=== PATIENT | male | born 1955 | race African-American/Black ===

== ENCOUNTER 2021-02-05 12:56 | Emergency (ER) | payer OTHER ==
[2021-02-05 13:18] VITALS: BP 118/72; PULSE 110; TEMP 98.7; BMI 23.7
[2021-02-05] MEDS ORDERED: KETOROLAC TROMETHAMINE 30 MG/1 ML VIAL IM ONE (14:00)
[2021-02-05] MEDS ORDERED: KETOROLAC TROMETHAMINE 30 MG/1 ML VIAL ONE (14:06)
== END 2021-02-05 15:21 | disposition home or self-care (01) ==
LOC: JERFT 12:56
PROC: 3E023GC Introduction of Other Therapeutic Substance into Muscle, Percutaneous Approach (ICD-10-PCS; principal; 2021-02-05)
DX: M54.2 Cervicalgia (principal); V49.40XA Driver injured in collision with unspecified motor vehicles in traffic accident, initial encounter
CPT/HCPCS: 72050-TC-FY; 99284-25

== ENCOUNTER 2022-10-16 13:05 | Inpatient (IN) | payer OTHER ==
[2022-10-16] MEDS ORDERED: SODIUM CHLORIDE 2,177 ML IV ONE (14:11)
[2022-10-16 14:35] LABS: BASO % 0.5 % (0-2.0); HEMATOCRIT 37.8 % (35.4-49); HEMOGLOBIN 12.2 GM/dL (11.7-16.9); MCH 28.1 pg (25.7-33.7); MCHC 32.3 g/dl (32.0-35.9); MEAN CELL VOLUME 87.1 fl (80-96); MEAN PLT VOLUME 8.5 fl (7.5-11.1); MONO % 3.2 % (3.8-10.2); NEUT % 81.3 % (42.8-82.8); PLATELET COUNT 357 10^3/uL (134-434); RBC 4.34 M/mm3 (4.00-5.60); RDW 13.2 % (11.9-15.9); WHITE BLOOD COUNT 9.8 K/mm3 (4.0-10.0)
[2022-10-16 14:53] LABS: ACTIVATED PTT 34.7 SECONDS (25.2-36.5); INR 1.06 (0.83-1.09); PROTHROMBIN TIME (PATIENT) 12.3 SEC (9.7-13.0)
[2022-10-16 14:56] LABS: POTASSIUM 5.4 mmol/L (3.5-5.1)
[2022-10-16 14:58] LABS: CALCIUM 10.3 mg/dL (8.5-10.1)
[2022-10-16 14:59] LABS: BLOOD UREA NITROGEN 22.8 mg/dL (7-18); MAGNESIUM 2.4 mg/dL (1.8-2.4)
[2022-10-16 15:02] LABS: CREATININE 1.2 mg/dL (0.55-1.3)
[2022-10-16 15:03] LABS: BILIRUBIN,TOTAL 1.4 mg/dL (0.2-1)
[2022-10-16 15:04] LABS: TOT PROT 7.9 g/dl (6.4-8.2)
[2022-10-16 15:07] LABS: N-TERMINAL BNP 22.9 pg/ml (5-125)
[2022-10-16 15:11] LABS: LACTIC ACID 4.9 mmol/L (0.4-2.0)
[2022-10-16 15:42] LABS: VENOUS BASE EXCESS -14.7 mmol/L (-2-2); VENOUS O2 SATURATION 59.9 % (70-80)
[2022-10-16 15:46] LABS: VENOUS PH 7.191 (7.310-7.410)
[2022-10-16] MEDS ORDERED: INSULIN REGULAR 100 UNITS in SODIUM CHLORIDE 99 ML IVPB SCH ×2 (16:00→22:30)
[2022-10-16] MEDS ORDERED: SODIUM CHLORIDE 1,000 ML IV SCH (16:30)
[2022-10-16 16:31] LABS: POTASSIUM 5.4 mmol/L (3.5-5.1)
[2022-10-16 16:32] LABS: CALCIUM 9.5 mg/dL (8.5-10.1)
[2022-10-16 16:33] LABS: BLOOD UREA NITROGEN 22.1 mg/dL (7-18)
[2022-10-16 16:36] LABS: CREATININE 1.1 mg/dL (0.55-1.3)
[2022-10-16 17:06] LABS: URINE APPEARANCE CLEAR; URINE BILIRUBIN NEGATIVE (NEGATIVE); URINE COLOR YELLOW; URINE GLUCOSE (UA) 3+ (NEGATIVE); URINE KETONE 4+ (NEGATIVE); URINE LEUK ESTERASE NEGATIVE (NEGATIVE); URINE NITRITE NEGATIVE (NEGATIVE); URINE PROTEIN NEGATIVE (NEGATIVE); URINE UROBILINOGEN 0.2 mg/dL (0.2-1.0)
[2022-10-16 17:22] LABS: POTASSIUM 4.5 mmol/L (3.5-5.1)
[2022-10-16 17:24] LABS: BLOOD UREA NITROGEN 20.9 mg/dL (7-18)
[2022-10-16 17:27] LABS: CREATININE 1.1 mg/dL (0.55-1.3)
[2022-10-16 17:58] LABS: LACTIC ACID 3.6 mmol/L (0.4-2.0)
[2022-10-16] MEDS: SODIUM CHLORIDE 0.9%/KCL 20 MEQ/1,000 ML INFUS.BAG IV SCH (18:07)
[2022-10-16 21:03] VITALS: BMI 18.3
[2022-10-16] MEDS ORDERED: DEXTROSE 50%-WATER - 25 GM/50 ML VIAL IVPUSH PRN (22:16)
[2022-10-16] MEDS ORDERED: SODIUM CHLORIDE 1,000 ML IV STA (23:28)
[2022-10-17 01:46] LABS: POTASSIUM 5.1 mmol/L (3.5-5.1)
[2022-10-17 01:48] LABS: BLOOD UREA NITROGEN 18.4 mg/dL (7-18); CALCIUM 8.9 mg/dL (8.5-10.1)
[2022-10-17 01:49] LABS: ALBUMIN 3.5 g/dl (3.4-5.0); MAGNESIUM 2.2 mg/dL (1.8-2.4)
[2022-10-17 01:51] LABS: PHOSPHOROUS 2.8 mg/dL (2.5-4.9)
[2022-10-17 01:53] LABS: TOT PROT 6.7 g/dl (6.4-8.2)
[2022-10-17] MEDS: SODIUM CHLORIDE 0.9%/KCL 20 MEQ/1,000 ML INFUS.BAG IV SCH ×2 (04:40→16:27)
[2022-10-17 07:35] LABS: HEMATOCRIT 33.2 % (35.4-49); HEMOGLOBIN 11.1 GM/dL (11.7-16.9); MCH 29.2 pg (25.7-33.7); MCHC 33.6 g/dl (32.0-35.9); MEAN CELL VOLUME 86.8 fl (80-96); MEAN PLT VOLUME 8.7 fl (7.5-11.1); PLATELET COUNT 314 10^3/uL (134-434); RBC 3.82 M/mm3 (4.00-5.60); RDW 13.2 % (11.9-15.9); WHITE BLOOD COUNT 9.3 K/mm3 (4.0-10.0)
[2022-10-17 07:58] LABS: MAGNESIUM 2.3 mg/dL (1.8-2.4)
[2022-10-17 08:02] LABS: PHOSPHOROUS 3.2 mg/dL (2.5-4.9)
[2022-10-17] MEDS: INSULIN SLIDING SCALE (NOVOLOG) 1 VIAL SQ SCH ×3 (11:44→21:19)
[2022-10-17 12:43] LABS: POTASSIUM 4.1 mmol/L (3.5-5.1)
[2022-10-17 12:44] LABS: CALCIUM 8.9 mg/dL (8.5-10.1)
[2022-10-17 12:45] LABS: BLOOD UREA NITROGEN 14.5 mg/dL (7-18); MAGNESIUM 2.3 mg/dL (1.8-2.4)
[2022-10-17 12:48] LABS: PHOSPHOROUS 2.6 mg/dL (2.5-4.9)
[2022-10-17] MEDS ORDERED: SODIUM CHLORIDE 1,000 ML IV STA (16:23)
[2022-10-18] MEDS: SODIUM CHLORIDE 0.9%/KCL 20 MEQ/1,000 ML INFUS.BAG IV SCH (02:33)
[2022-10-18] MEDS: INSULIN SLIDING SCALE (NOVOLOG) 1 VIAL SQ SCH ×4 (06:02→21:49)
[2022-10-18] MEDS ORDERED: ONDANSETRON 4 MG/2 ML VIAL IVPUSH PRN ×2 (07:31→17:27)
[2022-10-18] MEDS ORDERED: ONDANSETRON 4 MG/2 ML VIAL IVPUSH ONE (07:31)
[2022-10-18 08:03] LABS: POTASSIUM 4.3 mmol/L (3.5-5.1)
[2022-10-18 08:07] LABS: BLOOD UREA NITROGEN 10.8 mg/dL (7-18); CALCIUM 9.2 mg/dL (8.5-10.1)
[2022-10-18 08:11] LABS: CREATININE 0.9 mg/dL (0.55-1.3); PHOSPHOROUS 2.6 mg/dL (2.5-4.9)
[2022-10-18 08:17] LABS: BASO % 0.6 % (0-2.0); HEMATOCRIT 33.2 % (35.4-49); LYMPH % 26.6 % (8-40); MCH 28.8 pg (25.7-33.7); MEAN CELL VOLUME 87.3 fl (80-96); MEAN PLT VOLUME 8.3 fl (7.5-11.1); MONO % 4.8 % (3.8-10.2); PLATELET COUNT 288 10^3/uL (134-434); RBC 3.81 M/mm3 (4.00-5.60); RDW 13.4 % (11.9-15.9); WHITE BLOOD COUNT 7.4 K/mm3 (4.0-10.0)
[2022-10-18] MEDS: ENOXAPARIN NA (PORCINE) 40 MG/0.4 ML DISP.SYRIN SQ SCH (17:46)
[2022-10-18] MEDS: INSULIN (LEVEMIR) 100 UNITS/ML UNITS SQ SCH (21:48)
[2022-10-19] MEDS: INSULIN (LEVEMIR) 100 UNITS/ML UNITS SQ SCH ×2 (06:21→22:28)
[2022-10-19] MEDS: INSULIN SLIDING SCALE (NOVOLOG) 1 VIAL SQ SCH ×4 (06:22→22:55)
[2022-10-19 08:22] LABS: POTASSIUM 4.1 mmol/L (3.5-5.1)
[2022-10-19 08:24] LABS: BASO % 0.5 % (0-2.0); HEMATOCRIT 33.8 % (35.4-49); LYMPH % 20.7 % (8-40); MCH 28.3 pg (25.7-33.7); MCHC 32.6 g/dl (32.0-35.9); MEAN PLT VOLUME 7.7 fl (7.5-11.1); MONO % 6.8 % (3.8-10.2); PLATELET COUNT 295 10^3/uL (134-434); RBC 3.89 M/mm3 (4.00-5.60); RDW 13.7 % (11.9-15.9); WHITE BLOOD COUNT 5.7 K/mm3 (4.0-10.0)
[2022-10-19 08:30] LABS: ALBUMIN 3.5 g/dl (3.4-5.0); BLOOD UREA NITROGEN 12.3 mg/dL (7-18); CALCIUM 9.2 mg/dL (8.5-10.1)
[2022-10-19 08:33] LABS: CREATININE 1.2 mg/dL (0.55-1.3)
[2022-10-19 08:35] LABS: BILIRUBIN,TOTAL 0.9 mg/dL (0.2-1)
[2022-10-19 08:37] LABS: TOT PROT 6.6 g/dl (6.4-8.2)
[2022-10-19] MEDS: ENOXAPARIN NA (PORCINE) 40 MG/0.4 ML DISP.SYRIN SQ SCH (10:20)
[2022-10-19] MEDS ORDERED: INSULIN (NOVOLOG) ASPART 100 UNITS/ML 10ML VIAL ONE (11:37)
[2022-10-19] MEDS ORDERED: SODIUM CHLORIDE 1,000 ML IV STA (17:54)
[2022-10-19] MEDS ORDERED: SODIUM CHLORIDE 1,000 ML IV SCH (18:00)
[2022-10-19] MEDS ORDERED: SODIUM CHLORIDE 0.45% 1,000 ML IV SCH (18:30)
[2022-10-20] MEDS: SODIUM CHLORIDE 0.45% 1,000 ML IV SCH ×2 (03:15→21:23)
[2022-10-20] MEDS ORDERED: ONDANSETRON 4 MG/2 ML VIAL IVPUSH PRN (03:36)
[2022-10-20] MEDS ORDERED: SODIUM CHLORIDE 1,000 ML IV SCH (03:36)
[2022-10-20] MEDS: INSULIN (LEVEMIR) 100 UNITS/ML UNITS SQ SCH (06:12)
[2022-10-20] MEDS: INSULIN SLIDING SCALE (NOVOLOG) 1 VIAL SQ SCH ×4 (06:12→21:23)
[2022-10-20 07:34] LABS: POTASSIUM 3.4 mmol/L (3.5-5.1)
[2022-10-20 07:42] LABS: CALCIUM 9.4 mg/dL (8.5-10.1)
[2022-10-20 07:43] LABS: ALBUMIN 3.3 g/dl (3.4-5.0)
[2022-10-20 07:44] LABS: BLOOD UREA NITROGEN 13.8 mg/dL (7-18)
[2022-10-20 07:48] LABS: BILIRUBIN,TOTAL 0.8 mg/dL (0.2-1); TOT PROT 6.3 g/dl (6.4-8.2)
[2022-10-20] MEDS: ENOXAPARIN NA (PORCINE) 40 MG/0.4 ML DISP.SYRIN SQ SCH (11:33)
[2022-10-20] MEDS ORDERED: POTASSIUM CHLORIDE ORAL LIQUID 20 MEQ/15 ML PO ONE (12:32)
[2022-10-20] MEDS ORDERED: INSULIN (NOVOLOG) ASPART 100 UNITS/ML 10ML VIAL ONE (21:10)
[2022-10-21] MEDS: SODIUM CHLORIDE 0.45% 1,000 ML IV SCH ×2 (04:03→11:13)
[2022-10-21] MEDS ORDERED: INSULIN (NOVOLOG) ASPART 100 UNITS/ML 10ML VIAL ONE ×5 (06:25→21:40)
[2022-10-21] MEDS: INSULIN (LEVEMIR) 100 UNITS/ML UNITS SQ SCH (06:26)
[2022-10-21] MEDS: INSULIN SLIDING SCALE (NOVOLOG) 1 VIAL SQ SCH ×4 (06:27→21:44)
[2022-10-21 06:43] LABS: POTASSIUM 3.5 mmol/L (3.5-5.1)
[2022-10-21 06:49] LABS: ALBUMIN 2.9 g/dl (3.4-5.0); BLOOD UREA NITROGEN 12.4 mg/dL (7-18); CALCIUM 8.7 mg/dL (8.5-10.1)
[2022-10-21 06:52] LABS: CREATININE 0.9 mg/dL (0.55-1.3)
[2022-10-21 06:54] LABS: BILIRUBIN,TOTAL 0.7 mg/dL (0.2-1); TOT PROT 5.5 g/dl (6.4-8.2)
[2022-10-21] MEDS: ENOXAPARIN NA (PORCINE) 40 MG/0.4 ML DISP.SYRIN SQ SCH (09:02)
[2022-10-22] MEDS ORDERED: INSULIN (NOVOLOG) ASPART 100 UNITS/ML 10ML VIAL ONE ×4 (06:18→22:51)
[2022-10-22] MEDS: INSULIN (LEVEMIR) 100 UNITS/ML UNITS SQ SCH (06:19)
[2022-10-22] MEDS: SODIUM CHLORIDE 0.45% 1,000 ML IV SCH ×2 (06:19→18:25)
[2022-10-22] MEDS: INSULIN SLIDING SCALE (NOVOLOG) 1 VIAL SQ SCH ×4 (06:20→22:51)
[2022-10-22 08:05] LABS: EOS % 1.8 % (0-4.5); HEMATOCRIT 26.6 % (35.4-49); HEMOGLOBIN 8.8 GM/dL (11.7-16.9); MCH 28.7 pg (25.7-33.7); MCHC 33.3 g/dl (32.0-35.9); MEAN CELL VOLUME 86.2 fl (80-96); MEAN PLT VOLUME 7.4 fl (7.5-11.1); MONO % 8.7 % (3.8-10.2); NEUT % 50.5 % (42.8-82.8); PLATELET COUNT 215 10^3/uL (134-434); RBC 3.09 M/mm3 (4.00-5.60); RDW 13.6 % (11.9-15.9)
[2022-10-22 08:30] LABS: POTASSIUM 3.2 mmol/L (3.5-5.1)
[2022-10-22 08:32] LABS: CALCIUM 8.7 mg/dL (8.5-10.1)
[2022-10-22 08:33] LABS: ALBUMIN 2.8 g/dl (3.4-5.0); BLOOD UREA NITROGEN 11.5 mg/dL (7-18)
[2022-10-22 08:36] LABS: CREATININE 0.7 mg/dL (0.55-1.3)
[2022-10-22 08:37] LABS: BILIRUBIN,TOTAL 0.6 mg/dL (0.2-1); TOT PROT 5.2 g/dl (6.4-8.2)
[2022-10-22] MEDS ORDERED: METOCLOPRAMIDE HCL INJECTION 10 MG/2 ML VIAL IVPUSH PRN (10:01)
[2022-10-22] MEDS: ENOXAPARIN NA (PORCINE) 40 MG/0.4 ML DISP.SYRIN SQ SCH (10:39)
[2022-10-22] MEDS: KCL 10 MEQ IVPB 10 MEQ/100 ML INFUS.BAG IVPB SCH ×3 (12:34→15:14)
[2022-10-22] MEDS ORDERED: POTASSIUM CHLORIDE ORAL LIQUID 20 MEQ/15 ML PO ONE (15:34)
[2022-10-22] MEDS: POLYETHYLENE GLYCOL (HEALTHYLAX) 3350 17 GM PACKET PO SCH ×2 (16:31→22:43)
[2022-10-22] MEDS ORDERED: SENNOSIDES 8.6MG TABLET (FP) PO SCH (22:00)
[2022-10-22] MEDS ORDERED: ATORVASTATIN CA 80 MG TABLET (FP) PO SCH (22:00)
[2022-10-23] MEDS ORDERED: INSULIN (NOVOLOG) ASPART 100 UNITS/ML 10ML VIAL ONE ×3 (05:59→17:01)
[2022-10-23] MEDS: INSULIN SLIDING SCALE (NOVOLOG) 1 VIAL SQ SCH ×4 (05:59→21:22)
[2022-10-23] MEDS ORDERED: INSULIN (LEVEMIR) 100 UNITS/ML UNITS SQ SCH ×2 (07:00→11:31)
[2022-10-23] MEDS: SODIUM CHLORIDE 0.45% 1,000 ML IV SCH (07:31)
[2022-10-23 08:33] LABS: HEMATOCRIT 25.3 % (35.4-49); MCH 30.3 pg (25.7-33.7); MCHC 35.4 g/dl (32.0-35.9); MEAN CELL VOLUME 85.6 fl (80-96); MEAN PLT VOLUME 8.4 fl (7.5-11.1); PLATELET COUNT 205 10^3/uL (134-434); RBC 2.96 M/mm3 (4.00-5.60); WHITE BLOOD COUNT 3.8 K/mm3 (4.0-10.0)
[2022-10-23 08:43] LABS: POTASSIUM 3.6 mmol/L (3.5-5.1)
[2022-10-23 08:56] LABS: BLOOD UREA NITROGEN 9.4 mg/dL (7-18); CALCIUM 9.2 mg/dL (8.5-10.1)
[2022-10-23 09:00] LABS: CREATININE 0.5 mg/dL (0.55-1.3)
[2022-10-23] MEDS ORDERED: PNEUMOC 20-VAL CONJ-DIP CRM/PF 0.5 ML SYRINGE IM ONE (10:00)
[2022-10-23] MEDS: RAMIPRIL 2.5 MG CAPSULE PO SCH ×2 (10:30→12:03)
[2022-10-23] MEDS: ENOXAPARIN NA (PORCINE) 40 MG/0.4 ML DISP.SYRIN SQ SCH ×2 (10:30→12:02)
[2022-10-23] MEDS: POLYETHYLENE GLYCOL (HEALTHYLAX) 3350 17 GM PACKET PO SCH ×3 (10:37→21:23)
[2022-10-23] MEDS ORDERED: POLYETHYLENE GLYCOL (HEALTHYLAX) 3350 17 GM PACKET PO SCH ×2 (11:45→17:54)
[2022-10-23] MEDS ORDERED: SODIUM CHLORIDE 0.45% 1,000 ML IV SCH (17:54)
[2022-10-23] MEDS ORDERED: ONDANSETRON 4 MG/2 ML VIAL IVPUSH ONE (20:23)
[2022-10-23] MEDS: ATORVASTATIN CA 80 MG TABLET (FP) PO SCH (21:23)
[2022-10-23] MEDS: DOCUSATE SODIUM 100 MG CAPSULE (FP) PO SCH (21:23)
[2022-10-23] MEDS ORDERED: DOCUSATE SODIUM 100 MG CAPSULE (FP) PO SCH (22:00)
[2022-10-24] MEDS: INSULIN SLIDING SCALE (NOVOLOG) 1 VIAL SQ SCH ×4 (06:36→21:10)
[2022-10-24] MEDS ORDERED: INSULIN (LEVEMIR) 100 UNITS/ML UNITS SQ SCH ×2 (07:00→11:17)
[2022-10-24] MEDS: POLYETHYLENE GLYCOL (HEALTHYLAX) 3350 17 GM PACKET PO SCH ×2 (10:28→21:10)
[2022-10-24] MEDS: ENOXAPARIN NA (PORCINE) 40 MG/0.4 ML DISP.SYRIN SQ SCH (10:28)
[2022-10-24] MEDS: RAMIPRIL 2.5 MG CAPSULE PO SCH (10:28)
[2022-10-24 16:29] VITALS: RESP 18
[2022-10-24] MEDS: DOCUSATE SODIUM 100 MG CAPSULE (FP) PO SCH (21:10)
[2022-10-24] MEDS: ATORVASTATIN CA 80 MG TABLET (FP) PO SCH (21:10)
[2022-10-25] MEDS: INSULIN SLIDING SCALE (NOVOLOG) 1 VIAL SQ SCH ×2 (06:46→12:13)
[2022-10-25] MEDS: POLYETHYLENE GLYCOL (HEALTHYLAX) 3350 17 GM PACKET PO SCH (10:13)
[2022-10-25] MEDS: RAMIPRIL 2.5 MG CAPSULE PO SCH (10:13)
[2022-10-25] MEDS: ENOXAPARIN NA (PORCINE) 40 MG/0.4 ML DISP.SYRIN SQ SCH (10:14)
[2022-10-25 10:49] LABS: BASO % 0.8 % (0-2.0); EOS % 0.9 % (0-4.5); HEMATOCRIT 30.3 % (35.4-49); HEMOGLOBIN 10.5 GM/dL (11.7-16.9); LYMPH % 28.6 % (8-40); MCHC 34.6 g/dl (32.0-35.9); MEAN CELL VOLUME 86.7 fl (80-96); MEAN PLT VOLUME 8.3 fl (7.5-11.1); MONO % 15.7 % (3.8-10.2); PLATELET COUNT 228 10^3/uL (134-434); RDW 15.5 % (11.9-15.9); WHITE BLOOD COUNT 3.6 K/mm3 (4.0-10.0)
[2022-10-25 11:03] LABS: POTASSIUM 3.2 mmol/L (3.5-5.1)
[2022-10-25 11:05] LABS: CALCIUM 9.5 mg/dL (8.5-10.1)
[2022-10-25 11:06] LABS: BLOOD UREA NITROGEN 8.4 mg/dL (7-18)
[2022-10-25 11:10] LABS: CREATININE 0.6 mg/dL (0.55-1.3)
[2022-10-25 11:12] LABS: BILIRUBIN,TOTAL 0.4 mg/dL (0.2-1); TOT PROT 6.4 g/dl (6.4-8.2)
[2022-10-25 11:16] LABS: ALBUMIN 3.4 g/dl (3.4-5.0)
[2022-10-25] MEDS ORDERED: POTASSIUM CHLORIDE TABS 20 MEQ TABLET.ER (FP) PO STA (11:42)
[2022-10-25 11:57] VITALS: BP 123/62; PULSE 89; TEMP 97.4
== END 2022-10-25 14:00 | disposition home or self-care (01) | DRG 638 ==
LOC: JER 13:05 → JERBED 17:12 → JICU 19:28 → J7W 10-18 16:08 → J4W 10-20 03:40 → J5S 10-23 17:48
PROVIDERS: ADMIT Internal Medicine Pulmonary Disease; ATTEND Internal Medicine
DX: E11.10 Type 2 diabetes mellitus with ketoacidosis without coma (principal); R64 Cachexia; Z68.1 Body mass index [BMI] 19.9 or less, adult; E78.5 Hyperlipidemia, unspecified; I10 Essential (primary) hypertension; E11.43 Type 2 diabetes mellitus with diabetic autonomic (poly)neuropathy; F17.210 Nicotine dependence, cigarettes, uncomplicated; E86.0 Dehydration; E87.6 Hypokalemia; R11.10 Vomiting, unspecified; R11.2 Nausea with vomiting, unspecified; K31.84 Gastroparesis
CPT/HCPCS: 0241U-QW; 36415; 70450-TC; 71045-TC-FY; 71275-TC; 80048; 80053; 80061; 81003; 82010; 82272; 82553; 82803; 82962; 83036; 83605; 83735; 83880; 84100; 84443; 84484; 85025; 85027; 85610; 85730; 86850; 86900; 86901; 87040; 87086; 90677; 93005; 93010; 93306-TC; 93880-TC; 97116-GP; 97162-GP; 99285-25

== ENCOUNTER 2023-11-26 18:11 | Emergency (ER) | payer OTHER ==
[2023-11-26] MEDS: SODIUM CHLORIDE 0.9% 500 ML INFUS.BAG IV ONE ×2 (19:50→23:16)
[2023-11-26] MEDS: ACETAMINOPHEN 1000 MG/100 ML BAG IVPB ONE (19:50)
[2023-11-26] MEDS ORDERED: ACETAMINOPHEN INJECTION 100 ML IVPB ONE (19:57)
[2023-11-26 20:13] VITALS: BMI 21.0
[2023-11-26 20:16] LABS: BASO % 0.2 % (0-2.0); HEMOGLOBIN 13.2 GM/dL (11.7-16.9); LYMPH % 3.8 % (8-40); MCH 27.2 pg (25.7-33.7); MCHC 32.3 g/dl (32.0-35.9); MEAN CELL VOLUME 84.3 fl (80-96); MEAN PLT VOLUME 6.9 fl (7.5-11.1); PLATELET COUNT 175 10^3/uL (134-434); RBC 4.86 M/mm3 (4.00-5.60); RDW 12.8 % (11.9-15.9); WHITE BLOOD COUNT 6.6 K/mm3 (4.0-10.0)
[2023-11-26 20:33] LABS: POTASSIUM 4.5 mmol/L (3.5-5.1)
[2023-11-26 20:36] LABS: ALBUMIN 3.3 g/dl (3.4-5.0); MAGNESIUM 2.3 mg/dL (1.8-2.4)
[2023-11-26 20:39] LABS: CREATININE 1.1 mg/dL (0.55-1.3); PHOSPHOROUS 4.1 mg/dL (2.5-4.9)
[2023-11-26 20:40] LABS: TOT PROT 6.9 g/dl (6.4-8.2)
[2023-11-26 20:41] LABS: BILIRUBIN,TOTAL 0.7 mg/dL (0.2-1)
[2023-11-26 21:09] LABS: ANISOCYTOSIS 1+; MACROCYTOSIS 0
[2023-11-26 22:17] LABS: CALCIUM 9.2 mg/dL (8.5-10.1)
[2023-11-26 22:18] LABS: BLOOD UREA NITROGEN 27.5 mg/dL (7-18)
[2023-11-26 22:21] LABS: CREATININE 1.1 mg/dL (0.55-1.3)
[2023-11-26 22:51] LABS: EPI CELLS 2 /uL (0-25.1); HYALINE CASTS 1 /uL (0-3.1); PH,URINE 5.5 (5.0-8.0); URINE APPEARANCE CLEAR; URINE BACTERIA 0 /uL (0-1359); URINE BILIRUBIN NEGATIVE (NEGATIVE); URINE COLOR YELLOW; URINE GLUCOSE (UA) 3+ (NEGATIVE); URINE KETONE 3+ (NEGATIVE); URINE LEUK ESTERASE NEGATIVE (NEGATIVE); URINE NITRITE NEGATIVE (NEGATIVE); URINE PROTEIN 1+ (NEGATIVE); URINE RBC 177 /uL (0-23.9); URINE WBC 6 /uL (0-25.8)
[2023-11-26 23:07] VITALS: BP 91/50; PULSE 94; RESP 18; TEMP 98.1
[2023-11-26] MEDS ORDERED: KETOROLAC TROMETHAMINE 15 MG/ML VIAL ONE (23:09)
[2023-11-26] MEDS: KETOROLAC TROMETHAMINE 15 MG/ML VIAL IVPUSH ONE (23:16)
[2023-11-26] MEDS: KETOROLAC TROMETHAMINE 30 MG/1 ML VIAL IVPUSH ONE (23:17)
== END 2023-11-26 23:56 | disposition home or self-care (01) ==
LOC: JER 18:11
PROC: 3E033NZ Introduction of Analgesics, Hypnotics, Sedatives into Peripheral Vein, Percutaneous Approach (ICD-10-PCS; principal; 2023-11-26)
PROC: 3E0333Z Introduction of Anti-inflammatory into Peripheral Vein, Percutaneous Approach (ICD-10-PCS; 2023-11-26)
DX: U07.1 COVID-19 (principal); R50.9 Fever, unspecified; R53.1 Weakness; R53.83 Other fatigue; R11.10 Vomiting, unspecified
CPT/HCPCS: 0241U-QW; 36415; 71045-TC-FY; 80048; 80053; 81003; 82962; 83735; 84100; 84484; 85025; 87086; 93005; 93010; 96374; 96375; 99285-25; J0131